=== PATIENT | male | born 1945 | race Caucasian/White ===

== ENCOUNTER 2020-03-27 08:28 | Outpatient (CLI) | payer MEDICARE | END 2020-03-27 23:59 | disposition home or self-care (01) | LOC: CFH 08:28 | PROVIDERS: ATTEND Family Medicine | DX: I77.811 Abdominal aortic ectasia (principal); I70.0 Atherosclerosis of aorta; Z87.891 Personal history of nicotine dependence | CPT/HCPCS: 76706 ==

== ENCOUNTER 2020-08-29 12:57 | Emergency (ER) | payer MEDICARE ==
[~2020-08-29] VITALS: Ht 182.9 cm; Wt 99.8 kg
[2020-08-29] MEDS ORDERED: SODIUM CHLORIDE FLUSH 10ML SYR IVF ONE (14:00)
--- NOTE | 2020-08-29 14:07 | NUR ---
PT TO ROOM AT THIS TIME
--- NOTE | 2020-08-29 14:14 | NUR ---
PT BROUGNEELIMA BACK GFROM LOBBY WITH CHIEGF COMPLAINT OF ABP PAIN FOR 2-3 DAYS. DENIES N.V.D
--- NOTE | 2020-08-29 14:17 | NUR ---
PT AWARE OF NEEDED URINE SAMPLE
[2020-08-29 14:36] LABS: BASOPHILS % (AUTO) 0 % (0-1); EOSINOPHILS % (AUTO) 1 % (1-7); LYMPHOCYTES % (AUTO) 14 % (22-44); MEAN CORPUSCULAR HEMOGLOBIN 32.6 pg (27.5-34.5); MEAN CORPUSCULAR HGB CONC 35.2 g/dL (33.2-36.2); MONOCYTES % (AUTO) 11 % (2-9); NEUTROPHILS % (AUTO) 74 % (42-75); PLATELET COUNT 197 x10^3/uL (130-400); RED CELL DISTRIBUTION WIDTH 13.3 % (9.4-14.8)
[2020-08-29 14:42] LABS: MD NO
[2020-08-29 14:50] LABS: ALBUMIN 3.6 g/dL (3.4-5.0); ANION GAP 6 mmol/L (5-15); CALCIUM 9.2 mg/dL (8.5-10.1); CHLORIDE 112 mmol/L (98-107)
[2020-08-29 14:53] LABS: ALANINE AMINOTRANSFERASE 28 U/L (12-78); ALKALINE PHOSPHATASE 117 U/L (45-117); BILIRUBIN,TOTAL 1.3 mg/dL (0.2-1.0); CREATININE 0.91 mg/dL (0.7-1.3); TOTAL PROTEIN 7.4 g/dL (6.4-8.2)
--- NOTE | 2020-08-29 16:00 | NUR ---
PT updated on POC
--- NOTE | 2020-08-29 16:42 | NUR ---
PT to imaging.
[2020-08-29] MEDS ORDERED: OMNIPAQUE 350 MG/ML, 100ML BOTTLE ONE (16:52)
[2020-08-29 17:20] VITALS: BP 113/52
[2020-08-29] MEDS ORDERED: CEFDINIR 300 MG CAPSULE PO ONE (17:30)
[2020-08-29] MEDS ORDERED: metroNIDAZOLE 500 MG TABLET PO ONE (17:30)
--- NOTE | 2020-08-29 17:36 | NUR ---
PT REFUSED PO MEDS DUE TO "PLANS TO GO OUT TONIGHT"
--- NOTE | 2020-08-29 17:40 | NUR ---
PT REC'VD DISCHARGE EDUCATION AND INSTRUCTIONS. PT HAD NO FURTHER QUESTIONS. PT AMBULATED TO DC AREA, STEADY GAIT.
== END 2020-08-29 18:02 | disposition home or self-care (01) ==
LOC: ED 16:30
DX: K57.32 Diverticulitis of large intestine without perforation or abscess without bleeding (principal); M54.5 Low back pain; R10.30 Lower abdominal pain, unspecified; I10 Essential (primary) hypertension; F17.200 Nicotine dependence, unspecified, uncomplicated; E78.00 Pure hypercholesterolemia, unspecified
CPT/HCPCS: 36415; 74177; 80053; 83690; 85025; 99285; Q9967

== ENCOUNTER → 2020-11-18 | Outpatient (CLI) | payer MEDICARE ==
[~2020-11-18] MED LIST: ATOR40TA78 PO; HYDR1TAB53 PO; LISI20TA21 PO; METF500T17 PO; MULT-658 PO; TAMS-11 PO; TRAM50TA2 PO; VITA80004 PO
[2020-11-18 14:57] LABS: BASOPHILS % (AUTO) 1 % (0-1); EOSINOPHILS % (AUTO) 1 % (1-7); LYMPHOCYTES % (AUTO) 31 % (22-44); MD NO; MEAN CORPUSCULAR HEMOGLOBIN 31.8 pg (27.5-34.5); MEAN CORPUSCULAR HGB CONC 34.8 g/dL (33.2-36.2); MEAN PLATELET VOLUME 7.7 fL (7.4-10.4); MONOCYTES % (AUTO) 8 % (2-9); NEUTROPHILS % (AUTO) 58 % (42-75); PLATELET COUNT 192 x10^3/uL (130-400); RED BLOOD COUNT 5.01 x10^6/uL (4.38-5.82); RED CELL DISTRIBUTION WIDTH 14.4 % (9.4-14.8)
[2020-11-18 15:07] LABS: ALANINE AMINOTRANSFERASE 36 U/L (12-78); ALBUMIN 3.9 g/dL (3.4-5.0); ANION GAP 6 mmol/L (5-15); CALCIUM 9.4 mg/dL (8.5-10.1); CHLORIDE 112 mmol/L (98-107); CREATININE 0.83 mg/dL (0.7-1.3)
[2020-11-18 15:10] LABS: ALKALINE PHOSPHATASE 103 U/L (45-117); BILIRUBIN,TOTAL 0.5 mg/dL (0.2-1.0); TOTAL PROTEIN 7.4 g/dL (6.4-8.2)
[2020-11-18 15:11] LABS: INTERNATIONAL NORMALIZED RATIO 0.96 (0.93-1.1); PROTHROMBIN TIME 10.3 Seconds (9.6-11.5)
== END | disposition home or self-care (01) ==
LOC: STAR 13:41
PROVIDERS: ATTEND Orthopaedic Surgery
DX: Z01.810 Encounter for preprocedural cardiovascular examination (principal); Z01.818 Encounter for other preprocedural examination; M25.551 Pain in right hip; M16.11 Unilateral primary osteoarthritis, right hip; Z20.822 Contact with and (suspected) exposure to COVID-19
CPT/HCPCS: 36415; 80053; 83036; 85025; 85610; 85730; 87081; 87806; 93005; U0003; G0475

== ENCOUNTER 2020-11-30 13:58 | Emergency (ER) | payer MEDICARE ==
[~2020-11-30] VITALS: Ht 182.9 cm; Wt 98.2 kg
[2020-11-30 14:16] VITALS: BP_DIAS 50
--- NOTE | 2020-11-30 14:20 | NUR ---
PT TO ROOM FROM LOBBY, ONCE HE STOOD UP TO GET ON GURCOREY, HICCUPS RESOLVED.
[2020-11-30 14:37] VITALS: BP_SYST 47
--- NOTE | 2020-11-30 14:38 | NUR ---
Patient given discharge instructions and they have confirmed that they understand the instructions. Patient ambulatory with steady gait.
== END 2020-11-30 14:46 | disposition home or self-care (01) ==
LOC: ED 14:45
DX: R06.6 Hiccough (principal); I10 Essential (primary) hypertension
CPT/HCPCS: 99281